=== PATIENT | female | born 1985 ===

== ENCOUNTER 2020-06-01 09:13 | Outpatient (CLI) | payer OTHER ==
[2020-06-01 10:10] LABS: THYROID STIMULATING HORMONE 14.32 uIU/mL (0.34-5.60)
[2020-06-01 11:06] LABS: FREE T4 (FREE THYROXINE) 0.65 ng/dL (0.58-1.64)
== END 2020-06-01 09:14 | disposition home or self-care (01) ==
LOC: LAB 09:13
PROVIDERS: ATTEND Nurse Practitioner Obstetrics & Gynecology
DX: E03.9 Hypothyroidism, unspecified (principal)
CPT/HCPCS: 36415; 84439; 84443

== ENCOUNTER 2020-12-06 13:21 | Outpatient (CLI) | payer OTHER ==
[2020-12-06 20:33] LABS: THYROID STIMULATING HORMONE 5.79 uIU/mL (0.34-5.60)
[2020-12-06 21:18] LABS: FREE T4 (FREE THYROXINE) 0.76 ng/dL (0.58-1.64)
== END 2020-12-06 13:22 | disposition home or self-care (01) ==
LOC: LAB.S 13:21
PROVIDERS: ATTEND Physician Assistant
DX: E03.9 Hypothyroidism, unspecified (principal)
CPT/HCPCS: 36415; 84439; 84443

== ENCOUNTER 2020-12-22 12:07 | Day surgery (SDC) | payer OTHER ==
[2020-12-22 12:51] LABS: HCG UR QUAL NEGATIVE
[2020-12-22] MEDS ORDERED: LACTATED RINGERS 1,000 ML IV ONE ×2 (13:03→14:05)
--- NOTE | 2020-12-22 13:34 | ANESTHESIA ---
Pre-Anesthesia VS, & Labs - Diagnosis bloody diarrhea - Procedure colonoscopy Vital Signs: Temp Pulse Resp BP Pulse Ox 37.0 C 74 16 128/70 98 12/22/20 12:15 12/22/20 12:15 12/22/20 12:15 12/22/20 12:15 12/22/20 12:15 Height: 5 ft 8 in Weight (kg): 114.8 kg Body Mass Index: 38.5 BMI Classification: Obese - NPO >8 hours - Is Patient ?: No Home Medications and Allergies Home Medications: Ambulatory Orders ALPRAZolam [Alprazolam] 0.5 mg ORAL BID PRN 12/22/20 Levothyroxine [Synthroid] 1 tab ORAL DAILY 12/22/20 ALPRAZolam [Alprazolam] 0.5 mg ORAL BID PRN 12/22/20 Levothyroxine [Synthroid] 1 tab ORAL DAILY 12/22/20 Allergies/Adverse Reactions: Allergies Allergy/AdvReac Type Severity Reaction Status Date / Time oxycodone AdvReac Itching Verified 12/22/20 13:04 Anes History & Medical History - Anesthetic History Anesthesia Complications: reports: No previous complications Family history of Anesthesia Complications: Denies Family history of Malignant Hyperthermia: Denies - Medical History Cardiovascular: reports: None Pulmonary: reports: None Gastrointestinal: reports: Other Urinary: reports: None Musculoskeletal: reports: None Endocrine/Autoimmune: reports: HyPOthyroidism Skin: reports: None - Surgical History Orthopedic: reports: Other Exam General: Alert, Oriented x3, Cooperative Dental: WNL Mouth Openin Fingerbreadth Neck Mobility: Normal Mallampati classification: I Thyromental Distance: 4-6 cm Respiratory: Lungs clear Cardiovascular: Regular rate Plan Anesthesia Type: MAC, Total IV Consent for Procedure(s) Verified and Reviewed: Yes Code Status: Attempt Resuscitation ASA classification: 3-Severe systemic disease Is this case an emergency?: No
[2020-12-22] MEDS ORDERED: MIDAZOLAM 2 MG/2 ML VIAL ONE (13:48)
[2020-12-22] MEDS ORDERED: PROPOFOL 500 MG/50 ML 500 MG/50 ML VIAL ONE (13:49)
[2020-12-22 14:25] VITALS: BP 100/63
--- NOTE | 2020-12-22 18:26 | ANESTHESIA POST OP EVALUATION ---
Anesthesia Post Eval - Post Anesthesia Eval Vitals: Last Vital Signs Temp 36.4 C L 12/22/20 14:05 Pulse 66 12/22/20 14:24 Resp 20 12/22/20 14:24 BP 100/63 12/22/20 14:24 Pulse Ox 100 12/22/20 14:24 CV Function Including HR & BP: positive: Stable Pain Control: positive: Satisfactory Nausea & Vomiting: positive: Negative Mental Status: positive: Baseline Respiratory Status: Airway Patent Hydration Status: Satisfactory Anesthesia Complications: positive: None
== END 2020-12-22 12:08 | disposition home or self-care (01) ==
LOC: SDS 12:07
PROVIDERS: ATTEND Surgery
PROC: 0DBE8ZX Excision of Large Intestine, Via Natural or Artificial Opening Endoscopic, Diagnostic (ICD-10-PCS; principal; 2020-12-22 13:15)
DX: K92.1 Melena (principal); K64.8 Other hemorrhoids; K64.4 Residual hemorrhoidal skin tags; K52.9 Noninfective gastroenteritis and colitis, unspecified; E03.9 Hypothyroidism, unspecified; F41.9 Anxiety disorder, unspecified; F32.9 Major depressive disorder, single episode, unspecified; E66.9 Obesity, unspecified; Z68.38 Body mass index [BMI] 38.0-38.9, adult
CPT/HCPCS: 45380; 81025; 81599; 83630; 87015; 87177; 87209; 87272; 87329; 87493; J7120; 87045; 87046

== ENCOUNTER 2021-01-21 15:06 | Outpatient (CLI) | payer OTHER | END 2021-01-21 23:59 | LOC: LAB.R 15:06 | PROVIDERS: ATTEND Surgery | DX: R19.7 Diarrhea, unspecified (principal) | CPT/HCPCS: 87177; 87209 ==

== ENCOUNTER 2021-02-07 11:48 | Outpatient (CLI) | payer OTHER ==
[2021-02-07 15:42] LABS: THYROID STIMULATING HORMONE 3.67 uIU/mL (0.34-5.60)
[2021-02-07 15:44] LABS: FREE T3 3.88 pg/mL (2.5-3.9)
== END 2021-02-07 11:49 | disposition home or self-care (01) ==
LOC: LAB.S 11:48
PROVIDERS: ATTEND Physician Assistant
DX: E03.9 Hypothyroidism, unspecified (principal)
CPT/HCPCS: 36415; 84443; 84481

== ENCOUNTER 2021-11-22 12:53 | Outpatient (CLI) | payer OTHER ==
--- NOTE | 2021-11-22 13:42 | XRAY Report ---
PROCEDURE: Chest 2 View X-Ray INDICATIONS: WHEEZING TECHNIQUE: 2 view(s) of the chest. COMPARISON: None. FINDINGS: Surgical changes and devices: None. Lungs and pleura: No pleural effusions or pneumothorax. Lungs are clear. Mediastinum: Mediastinal contours are normal. Heart size is normal. Bones and chest wall: No suspicious bony abnormalities. Soft tissues appear unremarkable. IMPRESSION: Normal two-view chest x-ray Reviewed by: Tyrone Lee MD on 11/22/2021 12:41 PM [facility] Approved by: Tyrone Lee MD on 11/22/2021 12:41 PM [facility] Station ID: [id number]
== END 2021-11-22 23:59 ==
LOC: DI.S 12:53
PROVIDERS: ATTEND Physician Assistant Medical
DX: R06.2 Wheezing (principal)

== ENCOUNTER 2024-03-19 15:08 | Outpatient (CLI) | payer MEDICAID ==
--- NOTE | 2024-03-19 21:05 | XRAY Report ---
PROCEDURE: Knee 4+V LT INDICATIONS: LEFT KNEE PAIN TECHNIQUE: 4 views of the knee were acquired. COMPARISON: None. FINDINGS: Bones: No acute fractures or dislocations. No suspicious bony lesions. Mild joint space narrowing seen at the medial femorotibial compartment. Soft tissues: Small knee joint effusion. No suspicious soft tissue calcifications. IMPRESSION: Mild medial compartment osteoarthrosis. Small joint effusion. Reviewed by: Adam Triplett MD on 03/19/2024 9:04 PM PDT Approved by: Adam Triplett MD on 03/19/2024 9:04 PM PDT Station ID: [id number]
== END 2024-03-19 15:09 | disposition home or self-care (01) ==
LOC: DI.S 15:08
PROVIDERS: ATTEND Registered Nurse
DX: M17.12 Unilateral primary osteoarthritis, left knee (principal); M25.462 Effusion, left knee

== ENCOUNTER 2024-06-10 08:00 | Outpatient (CLI) | payer MEDICAID ==
--- NOTE | 2024-06-10 15:27 | XRAY Report ---
PROCEDURE: Abdomen Acute INDICATIONS: LEFT UPPER ABDOMINAL PAIN TECHNIQUE: 5 views of the abdomen were acquired. COMPARISON: Chest x-ray 11/22/2021 FINDINGS: Surgical changes and devices: None. Chest: Left basilar streaky consolidation with blunting of the left costophrenic angle. Heart size i s normal. No right pleural effusion. No pneumomediastinum or pneumopericardium. Bowel: No pneumoperitoneum. The bowel gas pattern is normal. Stool load within normal limits. Soft tissues: No masses; visualized solid organ contours appear normal in size. No suspicious abdom inal calcifications. Bones: No suspicious bony abnormalities. IMPRESSION: 1.Possible small left basilar pneumonia with small left pleural effusion. 2.No acute, displaced left rib fractures. 3.No pneumothorax or pneumoperitoneum. Reviewed by: Benji Stewart MD on 06/10/2024 3:26 PM PDT Approved by: Benji Stewart MD on 06/10/2024 3:26 PM PDT Station ID: [id number]
--- NOTE | 2024-06-10 21:46 | XRAY Report ---
PROCEDURE: Chest 1V INDICATIONS: CHEST PAIN TECHNIQUE: One view of the chest was acquired. COMPARISON: Chest x-ray 11/22/2021, abdomen x-ray 06/10/2024 FINDINGS: Surgical changes and devices: None. Lungs and pleura: No pleural effusions or pneumothorax. Lungs are clear. Mediastinum: Mediastinal contours appear normal. Heart size is normal. Bones and chest wall: No suspicious bony lesions. Overlying soft tissues appear unremarkable. IMPRESSION: No acute cardiopulmonary process. Reviewed by: Carmella Johnson MD on 06/10/2024 9:44 PM PDT Approved by: Carmella Johnson MD on 06/10/2024 9:44 PM PDT Station ID: [id number]
== END 2024-06-10 23:59 | disposition home or self-care (01) ==
LOC: DI.S 08:00
PROVIDERS: ATTEND Emergency Medicine
DX: R10.12 Left upper quadrant pain (principal)